=== PATIENT | female | born 1940 | race Caucasian/White ===

== ENCOUNTER 2019-02-28 16:32 | Emergency (ER) | payer MEDICARE, OTHER ==
--- NOTE | 2019-02-28 16:58 | ED ---
Skin Complaint - HPI Summary HPI Summary: Patient is a 79 y/o F presenting to the ED for a chief complaint of a blister on the fifth finger of the left hand for the last month. The blister appeared to be a blood blister when it initially appeared. The blister would burst and bleed several times in the last month without resolving. On 02/27/19, patient was on vacation and the blister burst and would not stop bleeding. She was seen by an EMS who applied dressing to the area without relief of the bleeding. Patient notes applying pressure for 45 minutes on 02/27/19 without having the bleeding stop. Patient denies fever, myalgia, or headache. She denies any aggravating or alleviating factors. PCP took a culture of the blood from the finger with unremarkable findings and referred the patient to dermatology. Patient has an appointment with dermatology in April. Medications reviewed. Allergies noted. - History of Current Complaint Chief Complaint: EDRashSkinAbscess Time Seen by Provider: 02/28/19 16:40 Stated Complaint: RT 5TH FINGER BLEEDING PER PT Hx Obtained From: Patient Onset/Duration: Started Weeks Ago, Atraumatic, Still Present Skin Exposure Onset/Duration: Weeks Ago Timing: Constant Onset Severity: Mild Current Severity: Mild Pain Intensity: 2 Pain Scale Used: 0-10 Numeric Skin Location: Hand - Fifth finger of left hand Aggravating Symptom(s): Nothing Alleviating Symptom(s): Nothing Associated Signs & Symptoms: Negative - Allergy/Home Medications Allergies/Adverse Reactions: Allergies Allergy/AdvReac Type Severity Reaction Status Date / Time No Known Allergies Allergy Verified 10/29/16 10:50 Home Medications: Home Medications Cyanocobalamin TAB* [Vitamin B12 TAB*] 500 mcg PO DAILY 02/28/19 [History Confirmed 02/28/19] PMH/Surg Hx/FS Hx/Imm Hx Previously Healthy: Yes Endocrine/Hematology History: Reports: Hx Thyroid Disease - THYROID REMOVED CANCER Denies: Hx Diabetes Cardiovascular History: Reports: Hx Hypertension Denies: Hx Hypercholesterolemia History: Reports: Hx Kidney Stones - NO KNOWN STONES NOW Musculoskeletal History: Denies: Hx Osteoporosis Sensory History: Reports: Hx Cataracts, Hx Contacts or Glasses - READING Denies: Hx Legally Blind, Hx Deafness, Hx Hearing Aid Opthamlomology History: Reports: Hx Cataracts, Hx Contacts or Glasses - READING Denies: Hx Legally Blind EENT History: Denies: Hx Deafness - Cancer History Hx Chemotherapy: No Hx Radiation Therapy: Yes - IODINE - Surgical History Surgical History: Yes Surgery Procedure, Year, and Place: THYROID REMOVED 2004 PT ON SYNTHROID Hx Anesthesia Reactions: Yes - AFTER FIRST THYROID SLOW TO RESPOND Infectious Disease History: No Infectious Disease History: Denies: Traveled Outside the [place] in Last 30 Days - Family History Known Family History: Negative: Diabetes - Social History Occupation: Retired Lives: With Family Alcohol Use: None Hx Substance Use: No Substance Use Type: Reports: None Hx Tobacco Use: No Smoking Status (MU): Never Smoked Tobacco Review of Systems Negative: Fever Negative: Myalgia Positive: Other - Positive bleeding from a blister on the fifth finger of the left hand Negative: Headache All Other Systems Reviewed And Are Negative: Yes Physical Exam - Summary Physical Exam Summary: Constitutional: Well-developed, Well-nourished, Alert. (-) Distressed Skin: Warm, Dry. Left fifth finger with small laceration and protruding tissue that is 0.5 cm by 0.5 cm on the ventral aspect of the finger distal to the DIP joint, small and bleeding. HENT: Normocephalic; Atraumatic Eyes: Conjunctiva normal Neck: Musculoskeletal ROM normal neck. (-) JVD, (-) Stridor, (-) Tracheal deviation Cardio: Rhythm regular, rate normal, Heart sounds normal; Intact distal pulses; Radial pulses are 2+ and symmetric. (-) Murmur Pulmonary/Chest wall: Effort normal. (-) Respiratory distress, (-) Wheezes, (-) Rales Abd: Soft, (-) tenderness, (-) Distension, (-) Guarding, (-) Rebound Musculoskeletal: (-) Edema Lymph: (-) Cervical adenopathy Neuro: Alert, Oriented x3 Psych: Mood and affect Normal Triage Information Reviewed: Yes Vital Signs On Initial Exam: Initial Vitals Temp Pulse Resp BP Pulse Ox 97.8 F 72 16 138/82 98 02/28/19 16:35 02/28/19 16:35 02/28/19 16:35 02/28/19 16:35 02/28/19 16:35 Vital Signs Reviewed: Yes Procedures - Sedation Patient Received Moderate/Deep Sedation with Procedure: No Diagnostics - Vital Signs Vital Signs Temp Pulse Resp BP Pulse Ox 02/28/19 16:35 97.8 F 72 16 138/82 98 - Laboratory Lab Statement: Any lab studies that have been ordered have been reviewed, and results considered in the medical decision making process. Course/Dx - Course Course Of Treatment: Patient is here with a bleeding pyogenic granuloma. Patient had a pressure dressing applied with improvement in her bleeding. Patient was educated on bleeding controlled. Patient will follow-up with her education analyst next week for definitive management. - Diagnoses Provider Diagnoses: Pyogenic granuloma Discharge ED - Sign-Out/Discharge Documenting (check all that apply): Patient Departure - Discharge - Discharge Plan Condition: Stable Disposition: HOME Patient Education Materials: Blister (ED) Referrals: Maria R Bellamy MD [Primary Care Provider] - Additional Instructions: Follow up with dermatology. Apply pressure for 30 minutes and do not peek at the wound if it bleeds again. PLEASE RETURN TO EMERGENCY DEPARTMENT FOR ANY NEW OR WORSENING SYMPTOMS. Please follow up with your primary care physician. Please make all follow-ups in 1-3 days unless I advise you otherwise. - Billing Disposition and Condition Condition: STABLE Disposition: Home - Attestation Statements Document Initiated by Du: Yes Documenting Scribe: Debra Mack Provider For Whom Du is Documenting (Include Credential): Jose Patel MD Scribe Attestation: I, Debra Mack, scribed for Jose Patel MD on 02/28/19 at 2020. Scribe Documentation Reviewed: Yes Provider Attestation: The documentation as recorded by the Debra ahumada accurately reflects the service I personally performed and the decisions made by me, Jose Patel MD Status of Scribe Document: Viewed
[2019-02-28 18:46] VITALS: BP 130/72
== END 2019-02-28 18:44 | disposition home or self-care (01) ==
LOC: ED 16:32
DX: L98.0 Pyogenic granuloma (principal); E03.9 Hypothyroidism, unspecified; I10 Essential (primary) hypertension; Z87.442 Personal history of urinary calculi; Z79.890 Hormone replacement therapy; Z79.899 Other long term (current) drug therapy
CPT/HCPCS: 99282

== ENCOUNTER 2019-03-19 17:29 | Inpatient (IN) | payer MEDICARE, OTHER ==
--- NOTE | 2019-03-19 20:14 | ED ---
Palpitations / Dysrhythmia - HPI Summary HPI Summary: The patient is a 79 y/o F presenting to [facility] with a chief complaint of fast heart rate today with recent diagnosis of atrial fibrillation. She reports that she has been experiencing SOB for the last six weeks since experiencing an episode of severe chest pressure, and it has continued to worsen into the last week. On 03/16/19, she went to her PCP, who diagnosed her with atrial fibrillation as seen on the EKG that was taken. She was prescribed Warfarin, and the dose of Atenolol she is on was increased. Today, her PCP called her and asked to come back in for another EKG, which showed an increase in heart rate from the previous one. She denies chest pain now, but she has experienced intermittent episodes of tightness. She endorses increased pressure in the neck from thyroid disease, which may be secondary to taking less Synthroid after her PCP found an elevation in the thyroid hormone on lab work taken on her initial visit. Currently, her symptoms are rated 2/10 in severity. PMHx: HTN, thyroid cancer. Nonsmoker, no EtOH, no substance use. Medications reviewed. Allergies noted. - History of Current Complaint Chief Complaint: EDDysrhythmPalp Time Seen by Provider: 03/19/19 20:06 Hx Obtained From: Patient Onset/Duration: Lasting Days, Still Present Severity Initially: Mild Severity Currently: Moderate Character: Fast Aggravating: Nothing Alleviating: Nothing Associated Signs & Symptoms: Negative Related History: Similar Episode/Dx as - atrial fibrillation - Allergy/Home Medications Allergies/Adverse Reactions: Allergies Allergy/AdvReac Type Severity Reaction Status Date / Time No Known Allergies Allergy Verified 03/19/19 19:38 Home Medications: Home Medications Warfarin TAB(*) [Coumadin TAB(*)] 5 mg PO DAILY 03/19/19 [History Confirmed ] PMH/Surg Hx/FS Hx/Imm Hx Endocrine/Hematology History: Reports: Hx Thyroid Disease - THYROID REMOVED CANCER Denies: Hx Diabetes Cardiovascular History: Reports: Hx Hypertension Denies: Hx Hypercholesterolemia History: Reports: Hx Kidney Stones - NO KNOWN STONES NOW Musculoskeletal History: Denies: Hx Osteoporosis Sensory History: Reports: Hx Cataracts, Hx Contacts or Glasses - READING Denies: Hx Legally Blind, Hx Deafness, Hx Hearing Aid Opthamlomology History: Reports: Hx Cataracts, Hx Contacts or Glasses - READING Denies: Hx Legally Blind - Cancer History Hx Chemotherapy: No Hx Radiation Therapy: Yes - IODINE - Surgical History Surgical History: Yes Surgery Procedure, Year, and Place: THYROID REMOVED 2004 PT ON SYNTHROID Hx Anesthesia Reactions: Yes - AFTER FIRST THYROID SLOW TO RESPOND Infectious Disease History: No Infectious Disease History: Denies: Traveled Outside the [place] in Last 30 Days - Family History Known Family History: Negative: Diabetes - Social History Alcohol Use: None Hx Substance Use: No Substance Use Type: Reports: None Hx Tobacco Use: No Smoking Status (MU): Never Smoked Tobacco Review of Systems Positive: Palpitations. Negative: Chest Pain Positive: Other - increased pressure in neck All Other Systems Reviewed And Are Negative: Yes Physical Exam - Summary Physical Exam Summary: Appearance: The patient is well-nourished in no acute distress and in no acute pain. Skin: The skin is warm and dry, and skin color reflects adequate perfusion. HEENT: The head is atraumatic. There is some exophthalmos but the head is otherwise normocephalic. The pupils are equal and reactive. The conjunctivae are clear and without drainage. Nares are patent and without drainage. Mouth reveals moist mucous membranes, and the throat is without erythema and exudate. The external ears are intact. The ear canals are patent and without drainage. The tympanic membranes are intact. Neck: The neck is supple with full range of motion and non-tender. There are no carotid bruits. There is no neck vein distension. Respiratory: Chest is non-tender. There are crackles in the bilateral lungs worse on the right than the left. Cardiovascular: Heart is an irregularly irregular tachycardic rate and rhythm. There is no murmur or rub auscultated. There is no peripheral edema and pulses are symmetrical and equal. Abdomen: The abdomen is soft and non-tender. There are normal bowel sounds heard in all four quadrants and there is no organomegaly palpated. Musculoskeletal: There is no back tenderness noted. Extremities are non-tender with full range of motion. There is good capillary refill. There is no peripheral edema or calf tenderness elicited. Neurological: Patient is alert and oriented to person, place and time. The patient has symmetrical motor strength in all four extremities. Cranial nerves are grossly intact. Deep tendon reflexes are symmetrical and equal in all four extremities. Psychiatric: The patient has an appropriate affect and does not exhibit any anxiety or depression. Triage Information Reviewed: Yes Vital Signs On Initial Exam: Initial Vitals Temp Pulse Resp BP Pulse Ox 99.1 F 108 18 155/118 95 03/19/19 17:34 03/19/19 17:34 03/19/19 17:34 03/19/19 17:34 03/19/19 17:34 Vital Signs Reviewed: Yes Procedures - Sedation Patient Received Moderate/Deep Sedation with Procedure: No Diagnostics - Vital Signs Vital Signs Temp Pulse Resp BP Pulse Ox 03/19/19 19:37 97.7 F 122 21 173/113 94 03/19/19 17:34 99.1 F 108 18 155/118 95 - Laboratory Result Diagrams: 03/19/19 20:37 03/19/19 20:37 Lab Statement: Any lab studies that have been ordered have been reviewed, and results considered in the medical decision making process. - EKG 1738 Cardiac Rate: Other Rate - 129 bpm EKG Rhythm: Atrial Fibrillation Summary of EKG Findings: An EKG at 1738 reveals atrial fibrillation with RVR at 129 bpm, no STEMI. ED physician has reviewed and interpreted this EKG. Course/Dx - Course Course Of Treatment: Ms. Almendarez presented to with atrial fibrillation and rapid ventricular response. She was nontoxic in appearance but had been in this rhythm for at least a week going at a reasonably fast rate for an 81-year- old. She was immediately placed on a monitor, an IV was initiated, labs drawn and she was given Cardizem. This controlled her rate I spoke with the hospitalist Dr. Peter about admission and further workup. - Diagnoses Provider Diagnoses: New onset a-fib, Atrial fibrillation with rapid ventricular response - Critical Care Time Critical Care Time: 30-74 min Discharge ED - Sign-Out/Discharge Documenting (check all that apply): Patient Departure - Discharge Plan Condition: Stable Disposition: ADMITTED TO [facility] Referrals: Maria R Bellamy MD [Primary Care Provider] - - Billing Disposition and Condition Condition: STABLE Disposition: Admitted to [facility] - Attestation Statements Document Initiated by Scribe: Yes Documenting Scribe: Krissy Singleton Provider For Whom Scribe is Documenting (Include Credential): Dr. Edison Holt MD Scribe Attestation: Krissy Teresa scribed for Dr. Edison Holt MD on 03/19/19 at 2214. Scribe Documentation Reviewed: Yes Provider Attestation: The documentation as recorded by the scribe, Krissy Singleton accurately reflects the service I personally performed and the decisions made by me, Dr. Edison Holt MD Status of Scribe Document: Viewed
[2019-03-19] MEDS ORDERED: Diltiazem IV push/loading dose 5 MG/ML 5 ML vial (25 mg) IV SLOW PU ONE (20:17)
[2019-03-19 20:54] LABS: ABS Basophils 0.1 10^3/ul (0-0.2); ABS Eosinophils 0.2 10^3/ul (0-0.6); ABS Lymphocytes 1.8 10^3/ul (1.0-4.8); ABS Monocytes 0.6 10^3/ul (0-0.8); ABS Neutrophils 4.5 10^3/ul (1.5-7.7); Eosinophil % 2.7 %; Hematocrit 41 % (35-47); Hemoglobin 13.7 g/dL (12.0-16.0); Lymphocyte % 25.1 %; Mean Corpuscular HGB Conc 34 g/dL (31-36); Mean Corpuscular Hemoglobin 31 pg (27-31); Mean Corpuscular Volume 91 fL (80-97); Platelet Count 240 10^3/uL (150-450); Red Blood Count 4.46 10^6 /uL (3.70-4.87); Red Cell Distribution Width 14 % (10-15); White Blood Count 7.2 10^3/uL (3.5-10.8)
[2019-03-19 21:17] LABS: INR 1.17 (0.82-1.09)
[2019-03-19 21:18] LABS: Troponin I 0.01 ng/mL (<0.03)
[2019-03-19 21:28] LABS: TSH (Thyroid Stimulating Horm) 0.29 mcIU/mL (0.34-5.60)
[2019-03-19] MEDS ORDERED: Diltiazem IV BAG* D5W Premix 125 MG/125 ML BAG IV ONE (21:30)
[2019-03-19 21:38] LABS: Albumin 3.8 g/dL (3.2-5.2); Albumin/Globulin Ratio 1.4 (1-3); BUN/Creatinine Ratio 17.4 (8-20); Calcium 9.1 mg/dL (8.6-10.3); EGFR African American 71.4 (>60); Globulin 2.8 g/dL (2-4); Magnesium 1.9 mg/dL (1.9-2.7); Potassium 3.4 mmol/L (3.5-5.0); Total Protein 6.6 g/dL (6.4-8.9)
[2019-03-19] MEDS ORDERED: Enoxaparin(*) 100 MG/ML SYR SUBCUT SCH (23:00)
[2019-03-19] MEDS ORDERED: Diltiazem IV BAG* D5W Premix 125 MG/125 ML BAG IV SCH ×2 (23:00)
[2019-03-20] MEDS ORDERED: Levothyroxine TAB* 75 MCG TAB PO SCH (06:00)
[2019-03-20] MEDS: Levothyroxine TAB* 150 MCG TAB PO SCH (06:23)
[2019-03-20 07:07] LABS: ABS Basophils 0.1 10^3/ul (0-0.2); ABS Eosinophils 0.2 10^3/ul (0-0.6); ABS Lymphocytes 1.6 10^3/ul (1.0-4.8); ABS Monocytes 0.6 10^3/ul (0-0.8); ABS Neutrophils 4.3 10^3/ul (1.5-7.7); Hematocrit 42 % (35-47); Hemoglobin 13.9 g/dL (12.0-16.0); Lymphocyte % 23.6 %; Mean Corpuscular HGB Conc 33 g/dL (31-36); Mean Corpuscular Hemoglobin 31 pg (27-31); Mean Corpuscular Volume 92 fL (80-97); Mean Platelet Volume 9.2 fL (7.4-10.4); Nucleated Red Blood Cells % 0.1; Platelet Count 240 10^3/uL (150-450); Red Blood Count 4.53 10^6 /uL (3.70-4.87); Red Cell Distribution Width 14 % (10-15); White Blood Count 6.7 10^3/uL (3.5-10.8)
[2019-03-20 07:14] LABS: INR 1.24 (0.82-1.09)
[2019-03-20 07:23] LABS: BUN/Creatinine Ratio 16.9 (8-20); Calcium 9.2 mg/dL (8.6-10.3); EGFR African American 74.2 (>60); EGFR Non-African American 61.3 (>60); Potassium 3.4 mmol/L (3.5-5.0)
--- NOTE | 2019-03-20 08:22 | HP ---
CC: Dr. Fountain * HISTORY AND PHYSICAL: DATE OF ADMISSION: 03/19/19 CHIEF COMPLAINT: Atrial fibrillation. HISTORY OF PRESENT ILLNESS: Ms. Almendarez is a 79-year-old woman with history of hypertension and thyroid cancer, who saw her primary care office about 4 days prior to admission where she reported episode of severe chest pressure that happened a day or 2 prior that visit. During that office visit, she was noted to be newly in atrial fibrillation. At that point, she did not have chest pain. Her atenolol dose was increased to try to begin to have rate control and she was ordered to start on warfarin, which she only started 2 days prior to admission. She came into the office again today for a recheck and found her to still have atrial fibrillation with rapid ventricular response. So, she was referred to the emergency department. She has not had any further chest pain. The patient has a history of thyroid cancer, which has recurred 7 times according to the patient. She is on suppressive doses of levothyroxine. She does state that the levothyroxine dose was decreased in the recent weeks. She goes to [facility] in [place], [place] for followup of her thyroid cancer and has been told that they wanted her TSH to be less than 0.1 in order to suppress thyroid cancer recurrence. 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 PAST SURGICAL HISTORY: Cataract removal, total thyroidectomy, nephrectomy, hysterectomy, bunion surgery, hammertoe surgery. MEDICATIONS: Medications on admission are 1. Amlodipine 5 mg p.o. q.a.m. 2. Aspirin 81 mg p.o. daily. 3. Atenolol 150 mg p.o. daily. 4. Calcium carbonate 1 tablet p.o. b.i.d. 5. Chondroitin 1200 mg p.o. b.i.d. 6. Glucosamine 1 tablet p.o. b.i.d. 7. Vitamin B12 at 500 micrograms p.o. daily. 8. Levothyroxine 150 micrograms p.o. q.a.m. 9. Lisinopril/hydrochlorothiazide 20/25 mg 1 tablet p.o. q.a.m. 10. Fish oil 1 tablet p.o. b.i.d. 11. Omeprazole 40 mg p.o. daily. 12. Warfarin 5 mg p.o. q.p.m. started 2 days ago. ALLERGIES: No known drug allergies. FAMILY HISTORY: Notable for mother, who of metastatic cancer of unknown origin. Grandmother of colon cancer. Father of a heart failure. SOCIAL HISTORY: She is retired, formerly worked in a [employer]. She is . She has 4 children. She never smoked. Drinks alcohol occasionally. No recreational drugs. REVIEW OF SYSTEMS: The patient denies any fever, weight loss, anorexia. The patient denies any chest pain today, but had chest pain about a week ago. The patient denies any cough, hemoptysis, or shortness of breath. She does report that she is under some stress. Her also has heart arrhythmia and scheduled for cardioversion on 03/20/19. Remainder of 14-point review of systems is negative other than mentioned in the HPI. PHYSICAL EXAMINATION GENERAL: She is alert, in no acute distress. VITAL SIGNS: Temperature is 36.6, pulse is 135 and down to 74 in the ER, respirations are 26, blood pressure is 129/79, O2 sat is 91%. HEENT: Head is normocephalic and atraumatic. Sclerae anicteric. Pupils are equal, round, and reactive to light and accommodation. Oropharynx is moist. No lesions. NECK: There is some lymphedema in the neck as well as thyroidectomy scar. No adenopathy or masses. LUNGS: Clear to auscultation and percussion bilaterally. HEART: Irregular. No murmurs. ABDOMEN: Soft. Nontender. Positive bowel sounds. No hepatosplenomegaly. EXTREMITIES: No peripheral edema. Dorsalis pedis pulses are 1+ bilaterally. NEUROLOGIC: Cranial nerves II through XII are intact. Motor strength is 5/5 throughout. Deep tendon reflexes are symmetric. DIAGNOSTIC STUDIES/LAB DATA: Laboratory Data: Sodium 140, potassium 3.4, chloride 104, bicarb 28, BUN 16, creatinine 0.92, glucose is 109, calcium 9.1, magnesium 1.9. AST 35, ALT 48. Troponin is 0.01. BNP 485. INR 1.17 and D- dimer 347. Lactic acid 1.2. White count 7.2, hemoglobin 13.7, hematocrit 41%, platelets are 290. TSH was 0.29. EKG shows atrial fibrillation with a ventricular rate of 126. Chest x-ray shows cardiomegaly with some interstitial edema. ASSESSMENT AND PLAN: 1. This is a 79-year-old woman presenting with new onset atrial fibrillation with a rapid ventricular response. The triggers of atrial fibrillation could include her iatrogenic hypothyroidism, which is intentional because of the thyroid cancer. She also may have cardiac ischemia or possibly a pulmonary process such as pneumonia. The patient will be admitted to telemetry and continued on diltiazem drip, which was started in the ER at 5 mg an hour. The patient will have an echocardiogram tomorrow to assess structural heart disease due to arrhythmia. She will also have a cardiology consult to decide whether she needs to have a rate control anticoagulation strategy versus rhythm control strategy. 2. Her oxygen levels were borderline low and she may have a degree of heart failure given her elevated BNP and her chest x-ray. She will have supplemental oxygen for now and we can give her diuresis if she does not auto diurese with better rate control. 3. For history of thyroid cancer, we will continue her on suppressive levothyroxine doses. T4 and T3 were elevated when checked 4 days ago. 4. Code status is full. 4. For DVT prophylaxis, she will remain on warfarin. We will increase the dose to try obtain a goal INR of 2 to 3. Until she has a goal INR of above 2, she should also be on Lovenox to prevent embolism from her atrial fibrillation. [id number] #: [id number] [facility]
[2019-03-20] MEDS ORDERED: amLODIPine TAB* 5 MG PO SCH (09:00)
[2019-03-20] MEDS ORDERED: Hydrochlorothiazide TAB* 25 MG PO SCH (09:00)
[2019-03-20] MEDS ORDERED: Atenolol TAB* 50 MG PO SCH (09:00)
[2019-03-20] MEDS ORDERED: Potassium Chlor TAB* 20 MEQ TAB.ER PO ONE ×2 (09:56→14:00)
[2019-03-20] MEDS ORDERED: Furosemide IV* 10 MG/ML 2 ML VIAL (20 MG) IV ONE (10:02)
[2019-03-20] MEDS: Pantoprazole TAB * 40 MG TAB PO SCH (10:06)
[2019-03-20] MEDS: Lisinopril TAB* 10 MG PO SCH (10:06)
[2019-03-20] MEDS: Cyanocobalamin TAB* 500 MCG PO SCH (10:06)
[2019-03-20] MEDS: Aspirin 81 mg CHEW TAB* 81 MG TAB.CHEW PO SCH (10:06)
[2019-03-20] MEDS: Apixaban* 5 MG TAB PO SCH ×2 (11:15→21:16)
[2019-03-20 11:24] LABS: Troponin I 0.02 ng/mL (<0.03)
--- NOTE | 2019-03-20 12:13 | CONS ---
CONSULTATION REPORT: DATE OF CONSULT: 03/20/19 ATTENDING PHYSICIAN: Dr. Marlon Dos Santos. PRIMARY PHYSICIAN: Dr. Maria R Fountain. REASON FOR CONSULTATION: AFib. CHIEF COMPLAINT: Shortness of breath, sent in due to abnormal ECG from PCP's office. 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 The patient states that she had been in her usual state of health up until 02/02 when she was walking with her and experienced profound chest pressure. She states that she has not had recurrent chest pain since that time ; however, over the course of the last 2 to 3 weeks, she has noticed decreased exercise capacity, exertional dyspnea, and generalized fatigue. She denies ever experiencing a sensation of her heart racing or irregularity. Denies syncope or dizziness. Denies edema. Denies abdominal distension or weight gain. She was evaluated by her primary physician on 03/23/19, due to complaints of dyspnea and generalized fatigue. At that point, ECG and blood work was obtained. Per the patient, she was diagnosed with AFib. Dr. Fountain increased her atenolol from 100 mg a day to 150 mg a day and also prescribed Coumadin therapy. The patient states that she was asked to go back into Dr. Maria R Fountain's office on 03/19/19, for repeat evaluation after medication changes. She states that she was informed that her heart rate did not improve and was actually more elevated, thus was directed to present to [facility] for further evaluation. While being evaluated in the emergency department, basic blood work was obtained. Troponin has been negative x1. BNP was elevated at 485, sodium was 134, TSH 0.29, INR 1.17. CBC was grossly normal. ECG on 03/19/19 while in the emergency department revealed AFib with rapid ventricular rate response, heart rate was 126 beats per minute. No ST abnormalities were appreciated. She was admitted to [address] [place] [address] due to symptomatic AFib and we were asked to see the patient in consultation. She was started on IV diltiazem therapy. Her daughters are at her bedside. The patient offers no further complaints. Denies any recent illness or infection. 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 Last ischemic evaluation: None. PAST MEDICAL HISTORY: 1. Hypertension. 2. Hypothyroidism. 3. Left renal angiomyolipoma. 4. Hyperlipidemia. 5. Papillary thyroid cancer. 6. Endometrial cancer. 7. Ulloa's esophagitis, follows Dr. Whatley. 8. 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 9. Per the patient, has lung nodule involvement from thyroid cancer, followed by MD Guerra. PAST SURGICAL HISTORY: Includes: 1. Bunionectomy. 2. Partial right nephrectomy in 2008. 3. Thyroidectomy. 4. Hysterectomy. 5. Cataracts. 6. Hernia surgery. HOME MEDICATIONS: According to the admission med rec, 1. Coumadin as directed. 2. Norvasc 5 mg a day. 3. Omeprazole 40 mg a day. 4. Lisinopril with hydrochlorothiazide 20/25 mg p.o. daily. 5. Synthroid 150 mcg p.o. daily. 6. Glucosamine 1 capsule p.o. b.i.d. 7. Vitamin B12 500 mg p.o. daily. 8. Aspirin 81 mg a day. 9. Atenolol 150 mg a day. 10. Calcium 600 with vitamin D 1 tablet p.o. b.i.d. ALLERGIES: No known drug allergies. FAMILY HISTORY: Noncontributory. SOCIAL HISTORY: The patient is a full code. She is and resides with her . 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 Denies tobacco use, alcohol abuse, or drug abuse. She ambulates independently. She lives a very active lifestyle, walking everyday. She states that she typically achieves 10, 000 steps a day. REVIEW OF SYSTEMS: All systems have been reviewed and are otherwise negative except as above mentioned in the HPI. PHYSICAL EXAM: The patient is lying upright in bed with family members at bedside. She appears to pit neck, although no evidence of retractions. She is pleasant, alert and oriented and well nourished. HEENT: Head is atraumatic, normocephalic. Oral mucosa is moist. Tongue is midline. Neck: Supple. Positive JVD. No carotid bruits. No thyromegaly. Cardiac: Tachycardiac, S1 and S2, irregular rate and rhythm. No murmur, gallop, or rub noted. Lungs: Auscultated posteriorly. Positive left lung field crackles. Positive right lower lung field crackles. No evidence of retractions. Abdomen is obese, protuberant, unable to assess for hepatomegaly. Nontender to palpation. Normoactive bowel sounds x4. Extremities: No pedal edema. No clubbing. No cyanosis. Peripheral Vascular: 3+ dorsalis pedis pulse and brachial pulses palpated bilaterally and symmetrically. DIAGNOSTIC STUDIES/LAB DATA: Blood work obtained 03/20/19, white count 6.7, hemoglobin 13.9, hematocrit 42, platelets 240. INR 1.24. Sodium 140, potassium 3.4, chloride 104, carbon dioxide 27, BUN 15, creatinine 0.89, glucose 110, BNP 485, troponin negative x1. TSH 0.29. Telemetry reviewed. The patient remained in AFib, rate is 130s to 140s. ASSESSMENT AND PLAN: 1. New diagnosed atrial fibrillation; CHADS-VASc is 4 representing 4% risk of annual stroke. Please note that this is a tentative CHADS-VASc score given echocardiogram is pending to rule out left ventricular dysfunction. She is currently on Coumadin with Lovenox bridge. INR is 1.24. She has normal renal function despite a partial right nephrectomy in 2008. At this current time, I would like to discontinue Coumadin therapy and Lovenox therapy. We will start Eliquis 5 mg p.o. b.i.d. starting at noon today. Please note that the last dose of Lovenox was at midnight last night. She is on atenolol 150 mg a day in combination with IV diltiazem. We will continue IV diltiazem and hold atenolol today in preparation for transesophageal echocardiogram cardioversion. Please note that upon review of medical records on telemetry in January when she was in normal sinus rhythm, her heart rate was only 53. Thus, we would like to avoid post-procedure bradycardia by holding atenolol prior to procedure today. I personally reviewed the risks and benefits in regards to transesophageal echocardiogram cardioversion with the patient. She is aware that there is a risk of superficial skin mendoza associated with cardioversion, bradycardia, hypotension, and rarely cerebrovascular accident. Given the patient has been out of rhythm for greater than 24 hours and is not adequately anticoagulated, we will do transesophageal echocardiogram prior to procedure. Consent will be obtained by proceduralist, Dr. Marlon Dos Santos. She will need the transesophageal echocardiogram as well as to rule out tachy mediated cardiomyopathy and to rule out wall motion abnormality given complaint of chest pain that occurred on 02/02/19. She will also benefit from eventual exercise nuclear stress test. It is not clear as to why the patient is on aspirin therapy. She denies any history of vascular disease, transient ischemic attack, or cerebrovascular accident. Given the patient is on oral anticoagulation, I would recommend discontinuing aspirin if there is no other indication that I was not able to delineate. TSH is 0.29. She has a known history of thyroid cancer, managed by MD Guerra. We will defer thyroid function to primary team. She would also likely benefit from eventual sleep study. 2. History of hypertension. Currently, is normotensive. We will discontinue HCTZ given hypokalemia and amlodipine therapy. I would like to optimize AV ca agents post procedure if able. Recommended achieving blood pressure less than 120/80 given a known history of 3.7 cm transthoracic ascending aneurysm which will be reevaluated on echo. 3. History of thyroid cancer. Per the patient, follows with MD Guerra. She was recently informed that there was partial lung involvement, although she emphasizes that the nodules are very minimal. Her TSH today is 0.29. There is recent levothyroxine adjustment by her primary physician. We will defer to the primary team. 4. History of hyperlipidemia. Recommended a goal LDL less than 100. 5. Hypokalemia. We will replace potassium with 40 mEq p.o. now and additional 40 mEq at 1400 today. 6. Complaints of shortness of breath with exertional dyspnea. The patient appears volume overloaded with evidence of JVD on physical examination and bilateral crackles noted in lung bases. We will administer IV Lasix 20 mg p.o. x1 now. She is able to proceed with transesophageal echocardiogram cardioversion and was able to lie flat on her back for 15 minutes when I was in the room. We would recommend gentle diuresis and we will follow closely. 7. Disposition. Pending course. The patient is full code. Dr. Marlon Dos Santos has personally seen and examined the patient and agrees with the above assessment and plan. Thank you for this kind consultation. Any future questions or concerns, please do not hesitate to contact our service. ANGELES JHA NP [id number]/JESSICA #: [id number] BIA
[2019-03-20] MEDS ORDERED: Flumazenil* 0.1 MG/ML 5 ML MDV ONE (14:51)
[2019-03-20] MEDS ORDERED: Naloxone* 0.4 MG/ML 1 ML VIAL ONE (14:51)
[2019-03-20] MEDS ORDERED: fentaNYL* 50 MCG/ML 2 ML VIAL (100 MCG VIAL) ONE (14:51)
[2019-03-20] MEDS ORDERED: Midazolam* 1 MG/ML 5 ML VIAL (5 MG) ONE (14:51)
[2019-03-20] MEDS ORDERED: Lidocaine 2% VISCOUS* 15 ML UDC ONE (14:51)
[2019-03-20] MEDS ORDERED: Warfarin TAB(*) 7.5 MG PO SCH (17:00)
--- NOTE | 2019-03-20 19:12 | TEE ---
*[facility]* [place] [address] Fax #: [phone] Transesophageal Echocardiogram Patient: Karina Almendarez : 1940 Study Date: 03/20/2019 Age: 79 Gender: F HR: 134 bpm Height: 68 in /172.7 cm BSA: 2.1 m^2 Weight: 212.6 lb /96.6 kg BMI: 32.4 kg/m^2 *Apartment Leasing Specialist: * Genet Del Castillo [facility] *Referring Physician: * Aidee Simental *Reading Physician: * Marlon Dos Santos MD Indications: Atrial Fibrillation. History: Ulloa's Esophagus. Dysphasia. 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 Risk factors: Hypertension. Conclusions Summary: - Left ventricle: Systolic function is at the lower limits of normal. The estimated ejection fraction is 45-50%, by visual assessment. Wall motion is normal; there are no regional wall motion abnormalities. - Right ventricle: Systolic function is mildly reduced. Systolic pressure is mildly increased. - Left atrium: The atrium is severely dilated. There is no evidence of a thrombus in the atrial cavity or appendage. - Atrial septum: A PFO is demonstrated by color Doppler and agitated saline contrast. - Mitral valve: There is mild to moderate regurgitation, with multiple jets. - Aortic valve: There is no evidence of stenosis. - Tricuspid valve: There is mild-moderate regurgitation. - Pulmonary arteries: Systolic pressure is mildly increased. Study data: Diagnostic Transesophageal Echocardiogram Consent: The risks and benefits of the procedure, including alternatives were discussed with the patient and/or their health care contact center representative and written informed consent was obtained. Procedure: Initial setup: The patient was brought to the laboratory in the fasting state.Intravenous access was obtained. Surface ECG leads, heart rate, heart rhythm, blood pressure measurements, pulse oximetric signals, and mainstream end-tidal CO2 tracings were monitored throughout the procedure. Sedation. Moderate sedation was administered by nursing staff. History and physical as well as labs were reviewed. An oral bite block was inserted for protection of oral dentition. The patient was placed in the left lateral decubitus position. Topical anesthesia was obtained using viscous lidocaine. A transesophageal probe was inserted by the attending recreation teacher. Transesophageal echocardiography was performed, and all standard views were attempted except for transgastric view. Imaging could not be obtained from the transgastric acoustic window(s) due to the patient's history of Ulloa's Esophagus. Multiple 2D, color flow Doppler and spectral Doppler images were obtained. The transesophageal probe was removed. The image quality was good. A bubble study was performed. Location: Procedure room. Patient status: Inpatient. Patient room number: 444-2. Study completion: The patient tolerated the procedure well. There were no complications. Administered medications: Midazolam, 5mg. Fentanyl, 50mcg. Findings Left ventricle: The cavity size is normal. Systolic function is at the lower limits of normal. The estimated ejection fraction is 45-50%, by visual assessment. Wall motion is normal; there are no regional wall motion abnormalities. Left ventricular diastolic function parameters are indeterminate. Right ventricle: The cavity size is mildly dilated. Systolic function is mildly reduced. Systolic pressure is mildly increased. Left atrium: The atrium is severely dilated. Emptying velocity is mildly reduced. There is no evidence of a thrombus in the atrial cavity or appendage. There is mild spontaneous echo contrast ("smoke") in the cavity and the appendage. Right atrium: The atrium is mildly dilated. Atrial septum: A PFO is demonstrated by color Doppler and agitated saline contrast. Bubble Study image 40. Mitral valve: The leaflets are mildly thickened. There is no evidence of stenosis. There is mild to moderate regurgitation, with multiple jets. Aortic valve: The leaflets are mildly thickened. There is no evidence of stenosis. There is no significant regurgitation. Tricuspid valve: The leaflets are normal thickness. There is no evidence of stenosis. There is mild-moderate regurgitation. Pulmonic valve: There is no evidence of stenosis. There is trace to mild regurgitation. Aorta: There is minimal atherosclerotic plaque visualized in the Transverse and Descending Aorta. Aortic root: The aortic root is appears normal. Ascending aorta: The ascending aorta is appears normal. Pericardium: There is no significant pericardial effusion. Pulmonary arteries: The main pulmonary artery is normal-sized. Systolic pressure is mildly increased. Systemic veins: Well visualized. Normal Bicaval view. Pulmonary veins: Well visualized. 1 of 4 visualized. Measurements Right ventricle Value Ref Tricuspid valve Value Ref Pressure, S 39 mm Hg ---- TR peak v 2.8 m/sec <=2.8 Peak RV-RA grad, S 31 mm Hg ----- Right atrium Value Ref Estimated RAP 8 mm Hg ---- Aortic root Value Ref Root diam 2.9 cm <4.2 Aortic valve Value Ref Liberty diam, ED 2.0 cm ---- Ascending aorta Value Ref AAo AP diam, S 2.9 cm ----- Mitral valve Value Ref Peak E 0.94 m/sec ---- Pulmonary artery Value Ref Decel time 132 ms ---- Pressure, S 39.0 mm Hg ----- Peak grad, D 3.5 mm Hg ---- Legend: (L) and (H) gray values outside specified reference range. Prepared and electronically signed by Marlon Dos Santos MD 03/20/2019 19:11
--- NOTE | 2019-03-20 20:05 | CARD ---
CC: Dr. Fountain * CARDIOVERSION REPORT: DATE OF PROCEDURE: 03/20/19. PROCEDURE: Cardioversion. INDICATION: Atrial fibrillation. The patient is a 79-year-old female admitted to the hospital with atrial fibrillation and rapid ventricular response. The patient was switched from Coumadin to Eliquis 5 mg twice a day. The patient had just undergone transesophageal echocardiogram showing normal LV size and systolic function. No significant valvular abnormalities. No evidence of thrombus in the left atrial appendage. Cardioversion was recommended. DESCRIPTION OF PROCEDURE: The patient was given an additional 2 mg of Versed for conscious sedation. The patient was cardioverted with 150 Joules of synchronized biphasic energy. The patient converted to normal sinus rhythm. The patient tolerated the procedure well with no complications. The patient will be seen in followup for evaluation of possible ischemic testing and a stress test, and if any further episodes of atrial fibrillation, will be considered for antiarrhythmic therapy. [id number]/CPS #: [id number] MTDD
--- NOTE | 2019-03-20 20:05 | PN ---
Subjective Date of Service: 03/20/19 Interval History: patient seen today, post PARI and cardioversion. Sinus rhythm this evening on tele. denies any chest pain or shortness of breath Past Medical History: Unchanged from Admission Objective Active Medications: Apixaban (Eliquis*) 5 mg PO BID [facility] Last Admin: 03/20/19 11:15 Dose: 5 mg Aspirin (Aspirin 81 Mg Chew Tab*) 81 mg PO DAILY [facility] Last Admin: 03/20/19 10:06 Dose: 81 mg Atenolol (Tenormin Tab*) 150 mg PO QAM [facility] Last Admin: 03/20/19 09:58 Dose: Not Given Cyanocobalamin (Vitamin B12 Tab*) 500 mcg PO DAILY [facility] Last Admin: 03/20/19 10:06 Dose: 500 mcg Diltiazem/Dextrose (Cardizem Iv D5w Bag* Premix) 125 mg in 125 mls @ 5 mls/hr IV .PER PROTOCOL [facility]; Protocol Last Admin: 03/20/19 00:30 Dose: 5 mls/hr Levothyroxine Sodium (Synthroid Tab*) 150 mcg PO DAILY@0600 [facility] Last Admin: 03/20/19 06:23 Dose: 150 mcg Lisinopril (Prinivil Tab*) 20 mg PO DAILY [facility] Last Admin: 03/20/19 10:06 Dose: 20 mg Pantoprazole Sodium (Protonix Tab*) 40 mg PO DAILY [facility] Last Admin: 03/20/19 10:06 Dose: 40 mg Vital Signs - 8 hr 03/20/19 03/20/19 03/20/19 12:32 14:02 14:54 Temperature Pulse Rate Respiratory 28 Rate Blood Pressure 116/61 133/75 (mmHg) O2 Sat by Pulse Oximetry 03/20/19 03/20/19 03/20/19 15:00 15:06 15:11 Temperature Pulse Rate 84 121 138 Respiratory Rate Blood Pressure 133/109 169/105 130/71 (mmHg) O2 Sat by Pulse 94 94 90 Oximetry 03/20/19 03/20/19 03/20/19 15:15 15:16 15:21 Temperature 98.0 F Pulse Rate 63 83 109 Respiratory 20 Rate Blood Pressure 131/92 131/92 (mmHg) O2 Sat by Pulse 94 89 91 Oximetry 03/20/19 03/20/19 03/20/19 15:26 15:31 15:36 Temperature Pulse Rate 61 64 59 Respiratory Rate Blood Pressure 110/73 99/64 113/59 (mmHg) O2 Sat by Pulse 91 91 93 Oximetry 03/20/19 03/20/19 03/20/19 15:51 16:00 16:01 Temperature Pulse Rate 60 70 64 Respiratory Rate Blood Pressure 84/62 110/68 (mmHg) O2 Sat by Pulse 91 93 94 Oximetry 03/20/19 03/20/19 03/20/19 16:15 16:26 16:44 Temperature Pulse Rate 60 63 Respiratory Rate Blood Pressure 97/65 99/66 118/59 (mmHg) O2 Sat by Pulse 92 92 Oximetry 03/20/19 03/20/19 03/20/19 16:48 16:58 17:02 Temperature Pulse Rate Respiratory Rate Blood Pressure 109/50 117/64 (mmHg) O2 Sat by Pulse 94 Oximetry Oxygen Devices in Use Now: Nasal Cannula Appearance: awake, alert no distress Eyes: No Scleral Icterus, - - EOMI Ears/Nose/Mouth/Throat: NL Teeth, Lips, Gums, Mucous Membranes Moist Neck: NL Appearance and Movements; NL JVP, Trachea Midline Respiratory: Symmetrical Chest Expansion and Respiratory Effort, Clear to Auscultation Cardiovascular: NL Sounds; No Murmurs; No JVD, No Edema Abdominal: NL Sounds; No Tenderness; No Distention Skin: No Rash or Ulcers Neurological: Alert and Oriented x 3 Result Diagrams: 03/20/19 06:45 03/20/19 06:45 Assess/Plan/Problems-Billing Assessment: 79 y/o female presented for Afib with RVR - Patient Problems (1) Afib Current Visit: Yes Status: Acute Code(s): I48.91 - UNSPECIFIED ATRIAL FIBRILLATION SNOMED Code(s): 20514684 Comment: - s/p PARI and cardioversion - eliquis 5 mg bid - Cardizem drip discontinued - Atenolol 150 mg QAM - Cardiology input appreciated (2) Hypothyroidism Current Visit: Yes Status: Acute Code(s): E03.9 - HYPOTHYROIDISM, UNSPECIFIED SNOMED Code(s): 61493092 Comment: - secondary to her thyroid cancer treatment - Her TSH is still detectable. unfortunately the goal is to push her TSH to undetectable level, but with her afib this may be a challenge. (3) Thyroid cancer Current Visit: Yes Status: Acute Comment: - secondary to her thyroid cancer treatment - Her TSH is still detectable. unfortunately the goal is to push her TSH to undetectable level, but with her afib this may be a challenge. (4) DVT prophylaxis Current Visit: Yes Status: Acute Code(s): Z29.9 - ENCOUNTER FOR PROPHYLACTIC MEASURES, UNSPECIFIED SNOMED Code(s): 496709912 Comment: on timbo
[2019-03-21 05:32] LABS: INR 1.62 (0.82-1.09)
[2019-03-21 05:38] LABS: BUN/Creatinine Ratio 19.3 (8-20); Calcium 8.5 mg/dL (8.6-10.3); EGFR African American 75.2 (>60); EGFR Non-African American 62.1 (>60); Magnesium 2.1 mg/dL (1.9-2.7); Phosphorus 4.2 mg/dL (2.5-5.0)
[2019-03-21] MEDS: Levothyroxine TAB* 150 MCG TAB PO SCH (06:09)
[2019-03-21] MEDS ORDERED: Furosemide IV* 10 MG/ML 2 ML VIAL (20 MG) IV ONE (08:23)
[2019-03-21] MEDS ORDERED: Potassium Chlor TAB* 20 MEQ TAB.ER PO ONE (08:24)
--- NOTE | 2019-03-21 08:41 | PN ---
<Aidee Simental - Last Filed: 03/21/19 08:31> Subjective Date of Service: 03/21/19 - newly found AF with RVR, CM Interval History: No events last night. Patient reports increased urine output after dose of IV lasix yesterday but still admits to SOB. She is still on supplemental oxygen. Denies chest pain, palpitations, sensation of heart racing, edema or dizziness. She is tolerating Eliquis with no report of bleeding episodes. Medications Active Medications: Apixaban (Eliquis*) 5 mg PO 1100,2300 [facility] Stop: 03/21/19 23:59 Apixaban (Eliquis*) 5 mg PO 1000,2200 [facility] Aspirin (Aspirin 81 Mg Chew Tab*) 81 mg PO DAILY [facility] Last Admin: 03/20/19 10:06 Dose: 81 mg Cyanocobalamin (Vitamin B12 Tab*) 500 mcg PO DAILY [facility] Last Admin: 03/20/19 10:06 Dose: 500 mcg Levothyroxine Sodium (Synthroid Tab*) 150 mcg PO DAILY@0600 [facility] Last Admin: 03/21/19 06:09 Dose: 150 mcg Lisinopril (Prinivil Tab*) 20 mg PO DAILY [facility] Last Admin: 03/20/19 10:06 Dose: 20 mg Metoprolol Succinate (Toprol Xl Tab*) 50 mg PO DAILY [facility] Pantoprazole Sodium (Protonix Tab*) 40 mg PO DAILY [facility] Last Admin: 03/20/19 10:06 Dose: 40 mg Objective Vital Signs: Temp Pulse Resp BP Pulse Ox 97.5 F 65 16 135/70 95 03/21/19 07:15 03/21/19 07:15 03/21/19 08:00 03/21/19 07:15 03/21/19 07:15 Oxygen Devices in Use Now: Nasal Cannula Appearance: Sitting on edge of bed, eating breakfast, NAD, Pleasant A+O x3 Ears/Nose/Mouth/Throat: NL Teeth, Lips, Gums, Clear Oropharnyx Neck: - - + hepatojugular reflex. Respiratory: - - + inspiratory rales noted in bilateral bases L>R Cardiovascular: NL Sounds; No Murmurs; No JVD, RRR, No Edema Abdominal: NL Sounds; No Tenderness; No Distention Extremities: No Edema Skin: No Rash or Ulcers Neurological: Alert and Oriented x 3 Lines/Tubes/Other Access: Clean, Dry and Intact Peripheral IV Laboratory Results: 03/20/19 06:45 03/21/19 05:07 INR (Anticoag Therapy) 1.62 (0.82-1.09) H 03/21/19 05:07 Total Bilirubin 1.00 mg/dL (0.2-1.0) 03/19/19 20:37 AST 35 U/L (13-39) 03/19/19 20:37 ALT 48 U/L (7-52) 03/19/19 20:37 Alkaline Phosphatase 49 U/L (34-104) 03/19/19 20:37 B-Natriuretic Peptide 485 pg/mL (<=100) H 03/19/19 20:37 Total Protein 6.6 g/dL (6.4-8.9) 03/19/19 20:37 Albumin 3.8 g/dL (3.2-5.2) 03/19/19 20:37 Globulin 2.8 g/dL (2-4) 03/19/19 20:37 Albumin/Globulin Ratio 1.4 (1-3) 03/19/19 20:37 TSH 0.29 mcIU/mL (0.34-5.60) L 03/19/19 20:37 03/19/19 03/20/19 20:37 06:45 Troponin I 0.01 0.02 Laboratory Results - last 24 hr 03/20/19 03/21/19 03/21/19 06:45 05:07 05:07 INR (Anticoag Therapy) 1.62 H Sodium 140 141 Potassium 3.4 L 4.0 Chloride 104 107 Carbon Dioxide 27 28 Anion Gap 9 6 BUN 15 17 Creatinine 0.89 0.88 Est GFR ( Amer) 74.2 75.2 Est GFR (Non-Af Amer) 61.3 62.1 BUN/Creatinine Ratio 16.9 19.3 Glucose 110 H 108 H Calcium 9.2 8.5 L Phosphorus 4.2 Magnesium 2.0 2.1 Troponin I 0.02 Diagnostic Imaging: *[facility]* [place] [address] Fax #: [phone] Transesophageal Echocardiogram Patient: Karina Almendarez : 1940 Study Date: 03/20/2019 Age: 79 Gender: F HR: 134 bpm Height: 68 in /172.7 cm BSA: 2.1 m^2 Weight: 212.6 lb /96.6 kg BMI: 32.4 kg/m^2 *Research Worker Kitchen: * Genet Del Castillo RD *Referring Physician: * Aidee Simental *Reading Physician: * Marlon Dos Santos MD Indications: Atrial Fibrillation. History: Ulloa's Esophagus. Dysphasia. 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 Risk factors: Hypertension. Conclusions Summary: - Left ventricle: Systolic function is at the lower limits of normal. The estimated ejection fraction is 45-50%, by visual assessment. Wall motion is normal; there are no regional wall motion abnormalities. - Right ventricle: Systolic function is mildly reduced. Systolic pressure is mildly increased. - Left atrium: The atrium is severely dilated. There is no evidence of a thrombus in the atrial cavity or appendage. - Atrial septum: A PFO is demonstrated by color Doppler and agitated saline contrast. - Mitral valve: There is mild to moderate regurgitation, with multiple jets. - Aortic valve: There is no evidence of stenosis. This report is only to be considered final once signed by the Provider(s) as displayed in the "<Electronically Signed by >" field (s). Absence of a signature indicates the report is in a draft status and still needs to be finalized. In the event this document was created by someone other than the signing Provider, the individual initiating the document will be listed in the "Entered by:" or "Dictated by:" wong. EKG Data: 03/21/2019; NSR rate 63 telemetry reviewed; Sinus rhythm rate 60-65 with PACs. No AF since CV 03/20/2019 Assessment/Plan #1 Newly diagnosed AF with RVR; Chads Vasc 5( age, gender, LV dysfunction, h/o HTN) Now on Eliquis 5mg Po BID. INR 1.6 today ( was receiving Coumadin which was stopped 03/20/2019). Will repeat INR 03/22/2019. She is s/p PARI/CV 2018. She has been in NSR since. Will d/c Atenolol and RX Toprol 50mg/day given LV dysfunction. She has severe LA dilatation. She would benefit from eventual sleep study to r/o ADAN. TSH is .29 she is followed by MD Guerra due to thyroid cancer and goal is to achieve TSH to undetectable levels. She will need an outpatient EST with MPI once compensated from a CHF standpoint. Her f/u appt is 04/06/[address] Dos Santos. 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 Will need eventual outpatient EST with MPI once compensated. Currently she has + JVD, bilateral rales L>R with c/o sob. Will give 40 mg IV Lasix X1 and 20 MEQ k-Dur. Atenolol to be switched to Toprol. Will continue lisinopril. Recommend another 24 hours for optimization of fluid status to avoid re admit for CHF. #3 h/o HTN; Now on Toprol and ACEI. Patient is normotensive. #4 h/o Thyroid cancer; Followed by MD Guerra. Per patient next appt is mid Apr 2019. Primary team following. #5 h/o Moderate MR; f/u outpatient. #6 Disposition pending course. Patient full code. Observe for another 24 hours to optimize volume status. Attending: China Conroy <China Conroy - Last Filed: 03/21/19 11:50> Medications Active Medications: Apixaban (Eliquis*) 5 mg PO 1100,2300 [facility] Stop: 03/21/19 23:59 Last Admin: 03/21/19 10:51 Dose: 5 mg Apixaban (Eliquis*) 5 mg PO 1000,2200 [facility] Aspirin (Aspirin 81 Mg Chew Tab*) 81 mg PO DAILY [facility] Last Admin: 03/21/19 09:36 Dose: 81 mg Cyanocobalamin (Vitamin B12 Tab*) 500 mcg PO DAILY [facility] Last Admin: 03/21/19 09:36 Dose: 500 mcg Levothyroxine Sodium (Synthroid Tab*) 150 mcg PO DAILY@0600 [facility] Last Admin: 03/21/19 06:09 Dose: 150 mcg Lisinopril (Prinivil Tab*) 20 mg PO DAILY [facility] Last Admin: 03/21/19 09:36 Dose: 20 mg Metoprolol Succinate (Toprol Xl Tab*) 50 mg PO DAILY [facility] Last Admin: 03/21/19 10:51 Dose: 50 mg Pantoprazole Sodium (Protonix Tab*) 40 mg PO DAILY [facility] Last Admin: 03/21/19 09:36 Dose: 40 mg Objective Vital Signs: Temp Pulse Resp BP Pulse Ox 97.5 F 65 16 135/70 95 03/21/19 07:15 03/21/19 07:15 03/21/19 08:00 03/21/19 07:15 03/21/19 07:15 Laboratory Results: 03/20/19 06:45 03/21/19 05:07 INR (Anticoag Therapy) 1.62 (0.82-1.09) H 03/21/19 05:07 Total Bilirubin 1.00 mg/dL (0.2-1.0) 03/19/19 20:37 AST 35 U/L (13-39) 03/19/19 20:37 ALT 48 U/L (7-52) 03/19/19 20:37 Alkaline Phosphatase 49 U/L (34-104) 03/19/19 20:37 B-Natriuretic Peptide 485 pg/mL (<=100) H 03/19/19 20:37 Total Protein 6.6 g/dL (6.4-8.9) 03/19/19 20:37 Albumin 3.8 g/dL (3.2-5.2) 03/19/19 20:37 Globulin 2.8 g/dL (2-4) 03/19/19 20:37 Albumin/Globulin Ratio 1.4 (1-3) 03/19/19 20:37 TSH 0.29 mcIU/mL (0.34-5.60) L 03/19/19 20:37 03/19/19 03/20/19 20:37 06:45 Troponin I 0.01 0.02 Assessment/Plan 03.21.19 11:49 am: Pt seen and examined. Above evaluation reviewed and d/w pt and SENIOR CORPORATE ACCOUNTANT Lauren Simental. Agree with current management and plan of care.
[2019-03-21] MEDS: Lisinopril TAB* 10 MG PO SCH (09:36)
[2019-03-21] MEDS: Pantoprazole TAB * 40 MG TAB PO SCH (09:36)
[2019-03-21] MEDS: Aspirin 81 mg CHEW TAB* 81 MG TAB.CHEW PO SCH (09:36)
[2019-03-21] MEDS: Cyanocobalamin TAB* 500 MCG PO SCH (09:36)
[2019-03-21] MEDS: Metoprolol Succinate XL TAB* 50 MG PO SCH (10:51)
[2019-03-21] MEDS: Apixaban* 5 MG TAB PO SCH ×2 (10:51→22:08)
--- NOTE | 2019-03-21 16:31 | PN ---
Subjective Date of Service: 03/21/19 Interval History: patient seen today, doing well. cardiology note appreciated and appreciate intervention already implemented for her heart failure. By the time I saw the patient she was feeling better and sitting up in the chair no distress. Past Medical History: Unchanged from Admission Objective Active Medications: Apixaban (Eliquis*) 5 mg PO 1100,2300 [facility] Stop: 03/21/19 23:59 Last Admin: 03/21/19 10:51 Dose: 5 mg Apixaban (Eliquis*) 5 mg PO 1000,2200 [facility] Aspirin (Aspirin 81 Mg Chew Tab*) 81 mg PO DAILY [facility] Last Admin: 03/21/19 09:36 Dose: 81 mg Cyanocobalamin (Vitamin B12 Tab*) 500 mcg PO DAILY [facility] Last Admin: 03/21/19 09:36 Dose: 500 mcg Levothyroxine Sodium (Synthroid Tab*) 150 mcg PO DAILY@0600 [facility] Last Admin: 03/21/19 06:09 Dose: 150 mcg Lisinopril (Prinivil Tab*) 20 mg PO DAILY [facility] Last Admin: 03/21/19 09:36 Dose: 20 mg Metoprolol Succinate (Toprol Xl Tab*) 50 mg PO DAILY [facility] Last Admin: 03/21/19 10:51 Dose: 50 mg Pantoprazole Sodium (Protonix Tab*) 40 mg PO DAILY [facility] Last Admin: 03/21/19 09:36 Dose: 40 mg Oxygen Devices in Use Now: Nasal Cannula Appearance: awake, alet no distress Eyes: No Scleral Icterus, PERRLA Ears/Nose/Mouth/Throat: NL Teeth, Lips, Gums, Mucous Membranes Moist Neck: NL Appearance and Movements; NL JVP, Trachea Midline Respiratory: - - bibasilar rales Cardiovascular: NL Sounds; No Murmurs; No JVD, RRR, No Edema Abdominal: NL Sounds; No Tenderness; No Distention Extremities: No Edema Neurological: Alert and Oriented x 3 Result Diagrams: 03/20/19 06:45 03/21/19 05:07 Assess/Plan/Problems-Billing Assessment: 79 y/o female presented for Afib with RVR - Patient Problems (1) Afib Current Visit: Yes Status: Acute Code(s): I48.91 - UNSPECIFIED ATRIAL FIBRILLATION SNOMED Code(s): 85465669 Comment: - s/p PARI and cardioversion - eliquis 5 mg bid - Cardizem drip discontinued - off Atenolol 150 mg QAM, now on toprol 50 mg daily - Cardiology input appreciated (2) Hypothyroidism Current Visit: Yes Status: Acute Code(s): E03.9 - HYPOTHYROIDISM, UNSPECIFIED SNOMED Code(s): 87426429 Comment: - secondary to her thyroid cancer treatment - Her TSH is still detectable. unfortunately the goal is to push her TSH to undetectable level, but with her afib this may be a challenge. - I did repeat her TSH for the morning to see if her level is better now that "her stress from afib" resolved. I asked her to discuss charline Guerra MD if they would like to titrate her dose up. (3) Thyroid cancer Current Visit: Yes Status: Acute Comment: - secondary to her thyroid cancer treatment - Her TSH is still detectable. unfortunately the goal is to push her TSH to undetectable level, but with her afib this may be a challenge. - I did repeat her TSH for the morning to see if her level is better now that "her stress from afib" resolved. I asked her to discuss charline Guerra MD if they would like to titrate her dose up. (4) DVT prophylaxis Current Visit: Yes Status: Acute Code(s): Z29.9 - ENCOUNTER FOR PROPHYLACTIC MEASURES, UNSPECIFIED SNOMED Code(s): 824227469 Comment: on eliquis
[2019-03-22 05:34] LABS: INR 1.48 (0.82-1.09)
[2019-03-22 05:42] LABS: BUN/Creatinine Ratio 16.5 (8-20); Calcium 8.7 mg/dL (8.6-10.3); EGFR African American 72.3 (>60); EGFR Non-African American 59.8 (>60); Potassium 3.7 mmol/L (3.5-5.0)
[2019-03-22] MEDS: Levothyroxine TAB* 150 MCG TAB PO SCH (05:53)
[2019-03-22] MEDS ORDERED: Potassium Chlor TAB* 20 MEQ TAB.ER PO ONE (08:00)
--- NOTE | 2019-03-22 08:03 | PN ---
Subjective Date of Service: 03/22/19 Interval History: f/u HFpEF, PAfib breathing continues to improve, less "wheeze" feeling no chest pain or palpitations BP mildly elevated off 02 tele: NSR, pac's Medications Active Medications: Apixaan (Eliquis*) 5 mg PO 1000,2200 [facility] Cyanocobalamin (Vitamin B12 Tab*) 500 mcg PO DAILY [facility] Last Admin: 03/21/19 09:36 Dose: 500 mcg Levothyroxine Sodium (Synthroid Tab*) 150 mcg PO DAILY@0600 [facility] Last Admin: 03/22/19 05:53 Dose: 150 mcg Lisinopril (Prinivil Tab*) 40 mg PO DAILY [facility] Metoprolol Succinate (Toprol Xl Tab*) 50 mg PO DAILY [facility] Last Admin: 03/21/19 10:51 Dose: 50 mg Pantoprazole Sodium (Protonix Tab*) 40 mg PO DAILY [facility] Last Admin: 03/21/19 09:36 Dose: 40 mg Potassium Chloride (Klor Con Er Tab*) 40 meq PO ONCE ONE Stop: 03/22/19 08:01 Objective Vital Signs: Temp Pulse Resp BP Pulse Ox 97.4 F 63 16 148/70 95 03/22/19 07:15 03/22/19 07:15 03/22/19 07:28 03/22/19 07:15 03/22/19 07:15 Oxygen Devices in Use Now: None Appearance: nad, pleasant Neck: Trachea Midline, - - uncertain jvp Respiratory: Symmetrical Chest Expansion and Respiratory Effort, - - rales left base Cardiovascular: RRR, No Edema, - - no significant murmur Abdominal: NL Sounds; No Tenderness; No Distention Extremities: No Edema Skin: No Rash or Ulcers Neurological: Alert and Oriented x 3 Lines/Tubes/Other Access: Clean, Dry and Intact Peripheral IV Laboratory Results: 03/20/19 06:45 03/22/19 05:08 INR (Anticoag Therapy) 1.48 (0.82-1.09) H 03/22/19 05:08 Total Bilirubin 1.00 mg/dL (0.2-1.0) 03/19/19 20:37 AST 35 U/L (13-39) 03/19/19 20:37 ALT 48 U/L (7-52) 03/19/19 20:37 Alkaline Phosphatase 49 U/L (34-104) 03/19/19 20:37 B-Natriuretic Peptide 485 pg/mL (<=100) H 03/19/19 20:37 Total Protein 6.6 g/dL (6.4-8.9) 03/19/19 20:37 Albumin 3.8 g/dL (3.2-5.2) 03/19/19 20:37 Globulin 2.8 g/dL (2-4) 03/19/19 20:37 Albumin/Globulin Ratio 1.4 (1-3) 03/19/19 20:37 TSH 0.39 mcIU/mL (0.34-5.60) 03/22/19 05:08 03/19/19 03/20/19 20:37 06:45 Troponin I 0.01 0.02 Diagnostic Imaging: Transesophageal Echocardiogram Study Date: 03/20/2019 Conclusions Summary: - Left ventricle: Systolic function is at the lower limits of normal. The estimated ejection fraction is 45-50%, by visual assessment. Wall motion is normal; there are no regional wall motion abnormalities. - Right ventricle: Systolic function is mildly reduced. Systolic pressure is mildly increased. - Left atrium: The atrium is severely dilated. There is no evidence of a thrombus in the atrial cavity or appendage. - Atrial septum: A PFO is demonstrated by color Doppler and agitated saline contrast. - Mitral valve: There is mild to moderate regurgitation, with multiple jets. - Aortic valve: There is no evidence of stenosis. Assessment/Plan 1. Atrial fibrillation - s/p cardioversion 2. New onset acute HFmEF 3. HTN 4. Obesity 5. Thyroid cancer - Continue eliquis 5 mg po bid - discontinue primary prevention aspirin (ordered) - Continue toprol 50 [address] po daily in [address] of home atenolol - Increase home lisinopril dose from 20 to 40 mg po daily (ordered) - Change home hctz to lasix 20 mg po daily (ordered) - Give 40 meq x 1 now (ordered) - If patient tolerates these changes well and ambulates later today could be discharged from a cardiac standpoint. Has f/u appointment with Dr. Dos Santos for further evaluation and management. Recommend BMP in 1-2 weeks
[2019-03-22] MEDS ORDERED: Furosemide TAB* 20 MG PO SCH (09:00)
[2019-03-22] MEDS ORDERED: Lisinopril TAB* 10 MG PO SCH (09:00)
[2019-03-22] MEDS: Metoprolol Succinate XL TAB* 50 MG PO SCH (09:33)
[2019-03-22] MEDS: Pantoprazole TAB * 40 MG TAB PO SCH (09:33)
[2019-03-22] MEDS: Cyanocobalamin TAB* 500 MCG PO SCH (09:34)
[2019-03-22] MEDS ORDERED: Apixaban* 5 MG TAB PO SCH (10:00)
[2019-03-22 12:49] VITALS: BP 148/79
--- NOTE | 2019-03-22 21:30 | DS ---
CC: Dr. Maria R Fountain; Dr. Marlon Dos Santos * DISCHARGE SUMMARY: DATE OF ADMISSION: 03/20/19 DATE OF DISCHARGE: 03/22/19 PRIMARY CARE PROVIDER: Dr. Maria R Fountain. FINAL DISCHARGE DIAGNOSES: 1. Atrial fibrillation with rapid ventricular response, status post cardioversion. 2. Thyroid cancer. 3. Hypertension. 4. Congestive heart failure, acute, new diagnosis. 5. Hypothyroidism. HOSPITAL COURSE: The patient presented to [facility] 03/[facility]/19 via the emergency room for atrial fibrillation, seen and evaluated by Dr. Edward Peter, admitting hospitalist. She was admitted to the medical service on for atrial fibrillation with RVR, was thought to be related to her iatrogenic hyperthyroidism due to oral suppressive therapy for her thyroid cancer. She was started on Cardizem drip and underwent transesophageal echocardiogram by Cardiology on 03/20/19 at 3 p.m. and did not reveal any intramural thrombus; however, it did show slightly depressed ejection fraction, 45%-50% and diastolic dysfunction and there was evidence of positive patent foramen ovale, but no intramural thrombus. She had successful cardioversion into normal sinus rhythm. Medication adjustment from cardiac point of view was implemented. During the hospital course, she was noted to be in mild congestive heart failure manifested with elevated BNP of 485, positive JVD and exertional dyspnea. She was diuresed with IV Lasix. Chest x-ray did confirm the presence of congestive heart failure and maintained in the hospital for an extra night post cardioversion for diuresis and today, on 03/22/19, she was seen and evaluated by Cardiology and she was deemed stable for discharge from cardiac point of view with close outpatient followup with Dr. Dos Santos. Therefore, she was seen and evaluated by me this afternoon around 2 o'clock. She is still on room air, offered no complaint, tolerating her medication changes well, remained in sinus rhythm, hence I deemed her stable for discharge from my point of view. However , prior to discharge, I did notice through the hospital stay that her TSH was slightly elevated giving the goal of being suppressed or near undetectable. Given her thyroid cancer, I did repeat it just to ensure that it was not stress induced on admission and her TSH did in fact show persistent elevation and her level came back to be 0.39. I did ask her to call MD Guerra in [place] who follow and monitor thyroid cancer and prior to discharge if they would like us to adjust her thyroid dosage to further suppress, and they did recommend to leave the dose now the same given her new onset AFib and CHF and they would address it in her appointment in April. PHYSICAL EXAMINATION: Vital sign: Temperature 98, pulse 67, respirations 18, satting 96%, blood pressure 148/79. General: She is awake, alert, oriented, pleasant, on room air, in no distress. Head and Neck: Normocephalic, atraumatic, supple. Lungs: Clear to auscultation. I do not appreciate any rhonchi, rales, or wheezing. Cardiovascular: S1, S2. Regular rate and rhythm. I do not appreciate any significant murmur. Abdomen: Positive bowel sounds. Soft, nontender, nondistended. Extremities: No pedal edema. CORPORATE DEVELOPMENT OFFICER: There is no motor or focal sensory deficit. Moving upper and lower extremities x4. DIAGNOSTIC STUDIES/LAB DATA: Diagnostic blood work: CBC unremarkable. Coagulation: INR is 1.48. Chemistry was significant for mild hypokalemia of 3.4. This has been addressed and currently 3.7. Troponin was negative x2 sets and BNP was elevated at 485. TSH on admission 0.29; three days later, 03/22/19 is 0.39. Diagnostic images: Chest x-ray shows, dated 03/19/19, findings consistent with mild congestive heart failure. EKG, 03/19/19, on presentation, she had atrial fibrillation with a rate of 126. EKG, 03/22/19, shows sinus rhythm with significant PACs and some bigeminy. Transesophageal echocardiogram done 03/20/19 reveals mild decrease in systolic function, 45%-50%, no regional wall motion abnormality. Left atrium severely dilated. No evidence of thrombus. There is positive PFO as demonstrated by color Doppler and bubble study. Mild mitral regurg, mild increased pulmonary artery pressure. PROCEDURE: Transesophageal echocardiogram and cardioversion by Dr. Marlon Dos Santos. CONSULTATION: Cardiology, Dr. Dos Santos. DISCHARGE MEDICATIONS: New medications: 1. Eliquis 5 mg b.i.d. 2. Lasix 20 mg daily. 3. Lisinopril was increased to 40 mg daily. 4. Hydrochlorothiazide was discontinued and instead it was replaced by Lasix as prescribed above. 5. Metoprolol XL 50 mg daily. This was to replace her home medication atenolol. Atenolol was discontinued. 6. Levothyroxine 150 mcg daily was maintained the same. 7. Omeprazole 40 daily maintained the same. 8. Fish oil. 9. Glucosamine. 10. Chondroitin. 11. Calcium with vitamin D. 12. Vitamin B12. Discontinue atenolol. Discontinue amlodipine. Discontinue hydrochlorothiazide combination with lisinopril at home. Discontinue aspirin. Discontinue warfarin. DISCHARGE RECOMMENDATIONS: Follow up with Dr. Marlon Dos Santos on 04/06/19 at 12 p.m. Follow up with primary care, Dr. Maria R Fountain in 1 to 2 weeks. Follow up with MD Guerra as scheduled in April. Take all medications as prescribed. Avoid exertional activity. DISCHARGE CONDITION: Stable DISCHARGE DISPOSITION: Home [id number]/[facility] #: [id number] MTDD
== END 2019-03-22 15:39 | disposition home or self-care (01) | DRG 308 ==
LOC: ED 17:29 → MEDTELE 22:41
PROVIDERS: ADMIT Internal Medicine; ATTEND Internal Medicine
PROC: B24BZZ4 Ultrasonography of Heart with Aorta, Transesophageal (ICD-10-PCS; 2019-03-20)
PROC: 5A2204Z Restoration of Cardiac Rhythm, Single (ICD-10-PCS; principal; 2019-03-20 14:30)
DX: I48.0 Paroxysmal atrial fibrillation (principal); I50.33 Acute on chronic diastolic (congestive) heart failure; Q21.1 Atrial septal defect; I42.8 Other cardiomyopathies; E89.0 Postprocedural hypothyroidism; I11.0 Hypertensive heart disease with heart failure; I71.2 Thoracic aortic aneurysm, without rupture; E78.5 Hyperlipidemia, unspecified; K22.70 Barrett's esophagus without dysplasia; E87.6 Hypokalemia; I34.0 Nonrheumatic mitral (valve) insufficiency; C73 Malignant neoplasm of thyroid gland; E05.80 Other thyrotoxicosis without thyrotoxic crisis or storm; T50.995A Adverse effect of other drugs, medicaments and biological substances, initial encounter; E66.9 Obesity, unspecified; Z68.32 Body mass index [BMI] 32.0-32.9, adult; Z92.3 Personal history of irradiation; Z85.42 Personal history of malignant neoplasm of other parts of uterus; Z90.710 Acquired absence of both cervix and uterus; Z90.5 Acquired absence of kidney; Y92.9 Unspecified place or not applicable; Z79.01 Long term (current) use of anticoagulants; Z79.890 Hormone replacement therapy; Z79.899 Other long term (current) drug therapy
CPT/HCPCS: 36415; 71045; 80048; 80053; 83605; 83735; 83880; 84100; 84439; 84443; 84479; 84484; 85025; 85379; 85610; 92960; 93005; 93312; 93325; 96374; 96375; 99156; 99157; 99283; A9270-GY; J1650; J1940; J2250; J2310; J3010; J3490

== ENCOUNTER 2024-01-12 05:47 | Observation (INO) ==
[2024-01-12] MEDS ORDERED: Lidocaine 2.5%/Prilocain 2.5% 5 GM TUBE ONE (06:00)
[2024-01-12] MEDS ORDERED: Heparin 5000 UNITS/ML 1 mL VIAL ONE ×2 (06:00→13:50)
[2024-01-12] MEDS ORDERED: ceFAZolin 2 GM PREMIX 2 GM/50 ML BAG ONE ×2 (06:00→11:22)
[2024-01-12] MEDS ORDERED: Famotidine IV 10 MG/ML 2 ml VIAL (20 mg) ONE (06:04)
[2024-01-12] MEDS: Famotidine IV 10 MG/ML 2 ml VIAL (20 mg) IV ONE (06:22)
[2024-01-12] MEDS ORDERED: Bupivacaine 0.5% SDV PF 30ML VIAL ONE ×2 (06:59→10:01)
[2024-01-12] MEDS ORDERED: ISOSULFAN BLUE 1% 5 ML VIAL 10 MG/ML SUBCUT ONE (07:00)
[2024-01-12] MEDS ORDERED: Scopolamine 1 mg/72hr PATCH ONE (07:14)
[2024-01-12] MEDS: Scopolamine 1 mg/72hr PATCH TRANSDERM ONE (07:16)
[2024-01-12] MEDS ORDERED: Phenylephrine IV 10 MG/ML 1 ml VIAL ONE (07:24)
[2024-01-12] MEDS ORDERED: Rocuronium 50 mg VIAL 10 mg/ml 5 ml VIAL (50 mg) ONE (07:24)
[2024-01-12] MEDS ORDERED: fentaNYL 100 mcg/2 ml 50 MCG/ML VIAL ONE ×4 (07:24→15:01)
[2024-01-12] MEDS ORDERED: Propofol 10 MG/ML 20 ML BTL ONE (07:24)
[2024-01-12] MEDS ORDERED: Lidocaine 2% PF 5 ML VIAL ONE (07:24)
[2024-01-12] MEDS ORDERED: Morphine 4 MG/ML VIAL (1 ml) IV PRN (09:26)
[2024-01-12] MEDS ORDERED: Naloxone 0.4 mg VIAL 0.4 mg/ml 1 ml VIAL IV PRN (09:26)
[2024-01-12] MEDS ORDERED: Ondansetron 4 mg VIAL 2 MG/ML 2 ml VIAL ONE (12:16)
[2024-01-12] MEDS ORDERED: HYDROcodone/ACETAMIN 5/325 mg TAB PO PRN (12:53)
[2024-01-12] MEDS ORDERED: Morphine 2 MG/ML SYRINGE IV PRN (12:53)
[2024-01-12] MEDS ORDERED: Benzocaine/Menthol LOZ PO PRN (12:53)
[2024-01-12] MEDS ORDERED: Glycopyrrolate/Formoterol (NF) MDI INH PRN (13:00)
[2024-01-12] MEDS: Heparin 5000 UNITS/ML 1 mL VIAL SUBCUT SCH (13:53)
[2024-01-12 14:17] LABS: Rapid COVID-19 Molecular Undetected (Undetected)
[2024-01-12] MEDS ORDERED: Prochlorperazine 5 mg/ml 2 ml VIAL (10 mg) ONE (14:26)
[2024-01-12] MEDS: Prochlorperazine 5 mg/ml 2 ml VIAL (10 mg) IV PRN (14:28)
[2024-01-12] MEDS: fentaNYL 100 mcg/2 ml 50 MCG/ML VIAL IV PRN (15:03)
[2024-01-12] MEDS: Buffered Lidocaine 1% SYRIN 1 ml INTRADERM ONE (16:46)
[2024-01-12] MEDS: Lactated Ringers 1000 ml BAG 1,000 ML IV SCH (16:47)
[2024-01-12] MEDS: ceFAZolin VIAL 2 GM in NS 0.9% 100 ml BAG 100 ML IVPB SCH (16:53)
[2024-01-12] MEDS: ceFAZolin 2 GM PREMIX 2 GM/50 ML BAG IV SCH (18:25)
[2024-01-12] MEDS: HYDROcodone/ACETAMIN 5/325 mg TAB PO PRN (21:24)
[2024-01-13 06:04] VITALS: BP 122/62
== END 2024-01-13 10:50 | disposition home or self-care (01) ==
LOC: OR 05:47 → SSU 15:52 → INTOOBSV 15:52
PROVIDERS: ADMIT Student in an Organized Health Care Education/Training Program; ATTEND Student in an Organized Health Care Education/Training Program

== ENCOUNTER 2024-03-19 04:23 | Inpatient (IN) ==
[2024-03-19 05:12] LABS: Activated Partial Thrombo Time 28.6 seconds (26.0-38.0); INR 1.53 (0.85-1.14)
[2024-03-19 05:15] LABS: Hematocrit 37.7 % (35-45); Mean Corpuscular Hemoglobin 30.2 pg (27-33); Mean Corpuscular Hgb Conc 34.4 g/dL (31-36); Mean Corpuscular Volume 87.6 fL (80-97); Mean Platelet Volume 10.1 fL (7.5-11.2); Platelet Count 114 10^3/uL (150-450); Red Blood Count 4.31 10^6/uL (3.63-4.92); Red Cell Distribution Width 14.9 % (12-17); White Blood Count 0.4 10^3/uL (3.8-11.8)
[2024-03-19 05:34] LABS: ABS Lymphocytes 0.2 10^3/uL (1.0-4.8); ABS Monocytes 0.1 10^3/uL (0.0-0.9); Eosinophil % 8.1 %; Lymphocyte % 59.6 %; Nucleated Red Blood Cells % 0.6 %/100WBC (0.0-0.8)
[2024-03-19] MEDS: Lactated Ringers SEPSIS* BAG 1,920 ML IV ONE (05:42)
[2024-03-19] MEDS: Ondansetron 4 mg VIAL 2 MG/ML 2 ml VIAL IV ONE (05:42)
[2024-03-19] MEDS: Cefepime 2 GM in Dextrose 2 GM/50 ML BAG IV ONE (05:42)
[2024-03-19 05:48] LABS: Albumin 3.3 g/dL (3.2-5.2); Albumin/Globulin Ratio 1.5 (1-3); Calcium 7.5 mg/dL (8.6-10.3); Creatinine, Serum 0.7 mg/dL (0.51-0.95); Digoxin 0.3 ng/ml (0.8-2.0); Globulin 2.2 g/dL (2-4); Magnesium 1.8 mg/dL (1.9-2.7); Potassium 4.2 mmol/L (3.5-5.0); Total Bilirubin 1.5 mg/dL (0.2-1.0); Total Protein 5.5 g/dL (6.4-8.9); eGFR CKD-EPI 85.8 (>60)
[2024-03-19] MEDS: Digoxin IV 0.5 MG/2 ML AMP (0.25 MG/ML) IV SLOW PU ONE (06:19)
[2024-03-19] MEDS: Magnesium Sulfate 2 gm BAG 2 GM/50 ML BAG IVPB ONE (06:20)
[2024-03-19 06:35] LABS: High Sensitivity Troponin 1 Hr 29 pg/mL (<15)
[2024-03-19] MEDS: Magic MouthWash1-BEN/MAAL/LIDO 180 ML BTL SWISH SWAL SCH (07:11)
[2024-03-19 07:33] LABS: Urine Appearance Clear; Urine Bilirubin Negative (Negative); Urine Blood Trace (Negative); Urine Color Yellow; Urine Glucose Negative (Negative); Urine Ketones Negative (Negative); Urine Nitrite Negative (Negative); Urine Protein 1+ (>=30 mg/dL) (Negative); Urine Specific Gravity 1.022 (1.002-1.030); Urine Urobilinogen Negative (Negative)
[2024-03-19 07:35] LABS: Urine Bacteria Absent /HPF (Absent); Urine Red Blood Cell 2+(6-10/hpf) /HPF (0-Trace); Urine Squamous Epithelial Cell Present /HPF (Absent); Urine White Blood Cell Trace(0-5/hpf) /HPF (0-Trace)
[2024-03-19] MEDS: NS 0.9% 1000 ml BAG 1,000 ML IV SCH (09:41)
[2024-03-19] MEDS: Magic MouthWash2-BEN/MAAL/LIDO/NYST 240 ML BTL (alt formulation) SWISH SWAL SCH (13:59)
[2024-03-19] MEDS: Cefepime 2 GM in Dextrose 2 GM/50 ML BAG IV SCH (13:59)
[2024-03-19] MEDS ORDERED: Cefepime 2 GM in Dextrose 2 GM/50 ML BAG IV SCH (14:00)
[2024-03-20 06:23] LABS: Hematocrit 35.6 % (35-45); Hemoglobin 11.9 g/dL (11.5-14.3); Mean Corpuscular Hemoglobin 29.6 pg (27-33); Mean Corpuscular Hgb Conc 33.5 g/dL (31-36); Mean Corpuscular Volume 88.5 fL (80-97); Red Blood Count 4.02 10^6/uL (3.63-4.92); Red Cell Distribution Width 14.9 % (12-17); White Blood Count 2.1 10^3/uL (3.8-11.8)
[2024-03-20 06:48] LABS: Calcium 7.1 mg/dL (8.6-10.3); Creatinine, Serum 0.53 mg/dL (0.51-0.95); Potassium 4.3 mmol/L (3.5-5.0); eGFR CKD-EPI 91.7 (>60)
[2024-03-20 08:07] LABS: ABS Lymphocytes 0.3 10^3/uL (1.0-4.8); ABS Monocytes 0.8 10^3/uL (0.0-0.9); ABS Neutrophils 0.9 10^3/uL (1.5-7.6); ABS Nucleated RBC 0.01 10^3/ul; Eosinophil % 1.6 %; Lymphocyte % 16.5 %; Mean Platelet Volume 9.8 fL (7.5-11.2); Nucleated Red Blood Cells % 0.3 %/100WBC (0.0-0.8); Platelet Count 95 10^3/uL (150-450); RBC Morphology Normal (Normal)
[2024-03-20] MEDS ORDERED: Vancomycin per Pharmacy 1 EA NOTE FOLLOW UP PRN (10:57)
[2024-03-20] MEDS: Vancomycin 1,500 MG in NS 0.9% 250 ml 250 ML IVPB ONE (12:26)
[2024-03-20] MEDS: Dexamethasone 0.1 MG/ML ORALSYR SWISH SPIT SCH (15:56)
[2024-03-21] MEDS: Vancomycin 1,250 MG in NS 0.9% 250 ml 250 ML IVPB SCH (00:09)
[2024-03-21 08:45] LABS: Hematocrit 35.4 % (35-45); Mean Corpuscular Hemoglobin 29.6 pg (27-33); Mean Corpuscular Hgb Conc 33.9 g/dL (31-36); Mean Corpuscular Volume 87.4 fL (80-97); Mean Platelet Volume 9.5 fL (7.5-11.2); Platelet Count 131 10^3/uL (150-450); Red Blood Count 4.05 10^6/uL (3.63-4.92); Red Cell Distribution Width 15.4 % (12-17); White Blood Count 18.1 10^3/uL (3.8-11.8)
[2024-03-21 09:09] LABS: ABS Eosinophils 0.2 10^3/ul (0.0-0.5); ABS Lymphocytes 1.1 10^3/ul (1.0-4.8); ABS Monocytes 2.2 10^3/ul (0.0-0.9); ABS Neutrophils 14.7 10^3/ul (1.5-7.6)
[2024-03-21 09:35] LABS: Calcium 7.4 mg/dL (8.6-10.3); Creatinine, Serum 0.65 mg/dL (0.51-0.95); Magnesium 1.8 mg/dL (1.9-2.7); eGFR CKD-EPI 87.3 (>60)
[2024-03-21 09:37] VITALS: BP 156/87
[2024-03-21] MEDS: Vancomycin Trough Check NOTE FOLLOW UP ONE (13:00)
== END 2024-03-21 13:13 | disposition home or self-care (01) | DRG 809 ==
LOC: ED 04:23 → EDHOLD 07:41 → MEDTELE 10:01
PROVIDERS: ADMIT Internal Medicine; ATTEND Internal Medicine